=== PATIENT | female | born 1990 | race Two or more races ===

== ENCOUNTER → 2017-11-28 | Outpatient (REF) | payer OTHER, SELFPAY ==
[2017-11-28 22:35] LABS: CHLAMYDIA DNA AMPLIFICATION NEGATIVE (NEGATIVE); GC DNA AMPLIFICATION NEGATIVE (NEGATIVE)
== END ==
LOC: M SFHCLERA 13:05
DX: R30.0 Dysuria (principal)
CPT/HCPCS: 87086

== ENCOUNTER 2017-12-01 09:40 | Emergency (ER) | payer OTHER, SELFPAY ==
[2017-12-01 10:45] LABS: KETONE, URINE AUTO RFX NEGATIVE (NEGATIVE); LEUKOCYTE ESTERASE UR AUTO RFX NEGATIVE (NEGATIVE); NITRITE, URINE AUTO RFX NEGATIVE (NEGATIVE); RBC, URINE AUTO RFX 1 /HPF (0-3); SPECIFIC GRAVITY UR AUTO RFX 1.001 (1.002-1.035); SQUAM EPITHELIAL CELL UR AURFX 0 /HPF (0-6); WBC, URINE AUTO RFX 1 /HPF (0-3)
[2017-12-01] MEDS: KETOROLAC 60 MG/2 ML VIAL (J1885) IM ×2 (11:09)
== END 2017-12-01 11:41 | disposition home or self-care (01) ==
LOC: M ED 09:40
DX: M54.5 Low back pain (principal); Z79.899 Other long term (current) drug therapy; Z88.8 Allergy status to other drugs, medicaments and biological substances
CPT/HCPCS: J1885

== ENCOUNTER → 2018-03-15 | Outpatient (REF) | payer BC ==
[~2018-03-15] MED LIST: NAPR-885 PO; ROBA500T PO; TOPI100T9
== END ==
LOC: M SFHCLERA 18:10
PROVIDERS: ATTEND Nurse Practitioner Family
DX: N89.8 Other specified noninflammatory disorders of vagina (principal)

== ENCOUNTER → 2018-04-26 | Outpatient (CLI) | payer BC ==
[2018-04-26 12:46] LABS: BASO % 0.5 % (0.0-1.0); EOS # 0.3 10^3/uL (0.0-0.50); EOS % 5.4 % (0.0-3.0); HEMATOCRIT 40.1 % (36.0-47.0); HEMOGLOBIN 12.7 g/dl (12.0-15.5); LYMPH # 1.7 10^3/uL (1.5-6.5); LYMPH % 30.9 % (24.0-44.0); MEAN CORPUSCULAR HEMOGLOBIN 27.8 pg (27.0-33.0); MEAN CORPUSCULAR HGB CONC 31.7 g/dl (32.0-36.5); MEAN CORPUSCULAR VOLUME 87.7 fl (80.0-96.0); MONO # 0.5 10^3/uL (0.0-0.8); PLATELET COUNT, AUTOMATED 291 10^3/uL (150-450); RED BLOOD COUNT 4.57 10^6/uL (4.00-5.40); WHITE BLOOD COUNT 5.6 10^3/uL (4.0-10.0)
[2018-04-26 13:39] LABS: ALBUMIN 3.8 GM/DL (3.2-5.2); ALT/SGPT 16 U/L (12-78); BILIRUBIN,TOTAL 0.5 MG/DL (0.2-1.0); BLOOD UREA NITROGEN 11 MG/DL (7-18); CARBON DIOXIDE LEVEL 26 MEQ/L (21-32); CHLORIDE LEVEL 106 MEQ/L (98-107); CHOLESTEROL LEVEL 126 MG/DL (<200); CHOLESTEROL RISK RATIO 2.333 (<5); CREATININE FOR GFR 0.86 MG/DL (0.55-1.30); FREE T4 1.01 NG/DL (0.76-1.46); GLOMERULAR FILTRATION RATE > 60.0 (>60); GLUCOSE, FASTING 90 MG/DL (70-100); HDL CHOLESTEROL 54 MG/DL (>40); LDL CHOLESTEROL 65 MG/DL (<100); NON-HDL-C 72 MG/DL; POTASSIUM SERUM 4.6 MEQ/L (3.5-5.1); SODIUM LEVEL 140 MEQ/L (136-145); TOTAL PROTEIN 6.9 GM/DL (6.4-8.2); TRIGLYCERIDES LEVEL 34 MG/DL (<150)
== END ==
LOC: M WUC 11:05
PROVIDERS: ATTEND Physician Assistant
DX: Z13.29 Encounter for screening for other suspected endocrine disorder (principal)

== ENCOUNTER → 2018-07-27 | Outpatient (REF) | payer BC | LOC: M SFHCLERA 17:27 | PROVIDERS: ATTEND Physician Assistant | DX: R10.2 Pelvic and perineal pain (principal) ==

== ENCOUNTER → 2019-05-15 | Outpatient (REF) | payer BC ==
[2019-05-15 17:39] LABS: HEMATOCRIT 37.5 % (36.0-47.0); MEAN CORPUSCULAR HEMOGLOBIN 28.4 pg (27.0-33.0); MEAN CORPUSCULAR VOLUME 88.9 fl (80.0-96.0); PLATELET COUNT, AUTOMATED 287 10^3/uL (150-450); RED BLOOD COUNT 4.22 10^6/uL (4.00-5.40); WHITE BLOOD COUNT 10.5 10^3/uL (4.0-10.0)
[2019-05-15 20:19] LABS: CHLAMYDIA DNA AMPLIFICATION NEGATIVE (NEGATIVE); GC DNA AMPLIFICATION NEGATIVE (NEGATIVE)
[2019-05-16 08:54] LABS: HEPATITIS B SURFACE ANTIGEN NEGATIVE (NEGATIVE); HEPATITIS C VIRUS ABY INDEX 0.1 INDEX (<0.8); HIV 1&2 SCREEN CENTAUR NEGATIVE (NEGATIVE); RUBELLA IgG QUALITATIVE IMMUNE (IMMUNE)
== END ==
LOC: M PLALAB 15:47
PROVIDERS: ATTEND Advanced Practice Midwife
DX: Z34.01 Encounter for supervision of normal first pregnancy, first trimester (principal)

== ENCOUNTER → 2019-05-30 | Outpatient (REF) | payer BC | LOC: M LAB REF 17:02 | PROVIDERS: ATTEND Family Medicine | DX: N23 Unspecified renal colic (principal) ==

== ENCOUNTER → 2019-06-15 | Outpatient (CLI) | payer BC | LOC: M PLALAB 10:11 | PROVIDERS: ATTEND Advanced Practice Midwife | DX: Z36.89 Encounter for other specified antenatal screening (principal) ==

== ENCOUNTER → 2019-07-05 | Outpatient (CLI) | payer BC ==
--- NOTE | 2019-07-06 02:59 | REP ---
Clinical: Anatomical evaluation. Comparison: None . Findings: Examination demonstrates a single live intrauterine in breech presentation. motion is identified by technologist. Placenta is noted posterior and grade I without evidence for placenta previa or abruption. Amniotic fluid volume is normal. Cervix measures 3.2 cm in length and appears closed. No evidence for nuchal cord. Gestational age by current measurements 18 weeks 3 days with MARIANO 12/03/2019 . FHR equals 146 beats per minute. BPD 4.1 cm 18 weeks 2 days HC 15.3 cm 18 weeks 2 days AC 13.4 cm 18 weeks 6 days FL 2.8 cm 18 weeks 5 days HL 2.7 cm 18 weeks 4 days HC/AC ratio 1.14 Estimated weight 254 grams (58th percentile). Anatomical assessment demonstrates normal structures including cranium, choroid plexus, cavum, cerebellum/posterior fossa, lungs, four-chamber heart/ventricular outflow tracts, diaphragm, stomach, cord insertion/three-vessel cord, kidneys/bladder, spine, and extremities. Current examination demonstrates subjective prominence to the nasal septum and follow-up evaluation of the facial features may be warranted. Impression: 1. Single live intrauterine in breech presentation demonstrating appropriate interval growth. 2. Prominent appearance to the nasal septum may warrant followup evaluation of the facial features.
== END ==
LOC: M WHC 12:48
PROVIDERS: ATTEND Advanced Practice Midwife
DX: Z34.02 Encounter for supervision of normal first pregnancy, second trimester (principal)

== ENCOUNTER → 2019-09-04 | Outpatient (REF) | payer BC ==
[~2019-09-04] MED LIST changes: +ACET-683 PO; +IBUP80TA PO; +PRENTAB9 PO
[2019-09-04 13:53] LABS: HEMATOCRIT 38.8 % (36.0-47.0); HEMOGLOBIN 12.1 g/dl (12.0-15.5); MEAN CORPUSCULAR HEMOGLOBIN 27.7 pg (27.0-33.0); MEAN CORPUSCULAR HGB CONC 31.2 g/dl (32.0-36.5); MEAN CORPUSCULAR VOLUME 88.8 fl (80.0-96.0); PLATELET COUNT, AUTOMATED 271 10^3/uL (150-450); RED BLOOD COUNT 4.37 10^6/uL (4.00-5.40); WHITE BLOOD COUNT 13.5 10^3/uL (4.0-10.0)
== END ==
LOC: M PLALAB 10:22
PROVIDERS: ATTEND Obstetrics & Gynecology
DX: Z36.89 Encounter for other specified antenatal screening (principal); Z3A.00 Weeks of gestation of pregnancy not specified

== ENCOUNTER → 2019-10-30 | Emergency (ER) | payer BC | END | disposition home or self-care (01) | LOC: M ED 07:30 | DX: O26.893 Other specified pregnancy related conditions, third trimester (principal); M65.272 Calcific tendinitis, left ankle and foot; R07.82 Intercostal pain; Z3A.35 35 weeks gestation of pregnancy; Z88.8 Allergy status to other drugs, medicaments and biological substances ==

== ENCOUNTER → 2019-11-09 | Outpatient (REF) | payer BC | LOC: M SFHCWAGY 13:02 | PROVIDERS: ATTEND Advanced Practice Midwife | DX: Z34.03 Encounter for supervision of normal first pregnancy, third trimester (principal) ==

== ENCOUNTER 2019-12-09 07:14 | Inpatient (IN) | payer BC ==
[2019-12-09] VITALS (31 sets, daily range): BP systolic 99–134; BP diastolic 53–90
[~2019-12-09] VITALS: Ht 175.3 cm; Wt 120.4 kg
[~2019-12-09 07:14] MED LIST changes: -ACET-683 PO; -IBUP80TA PO; -PRENTAB9 PO
[2019-12-09] MEDS ORDERED: PRENTAB9 PO (07:41)
[2019-12-09 09:44] LABS: HEMATOCRIT 36.4 % (36.0-47.0); HEMOGLOBIN 11.1 g/dl (12.0-15.5); MEAN CORPUSCULAR HEMOGLOBIN 25.4 pg (27.0-33.0); MEAN CORPUSCULAR HGB CONC 30.5 g/dl (32.0-36.5); MEAN CORPUSCULAR VOLUME 83.3 fl (80.0-96.0); PLATELET COUNT, AUTOMATED 220 10^3/uL (150-450); RED BLOOD COUNT 4.37 10^6/uL (4.00-5.40); WHITE BLOOD COUNT 13.3 10^3/uL (4.0-10.0)
[2019-12-09] MEDS ORDERED: LACTATED RINGER'S 1000 ML IV STA (09:58)
[2019-12-09] MEDS ORDERED: miSOPROStol 50 MCG 1/2 TAB (S0191) As Ordered ONE (10:25)
[2019-12-09] MEDS ORDERED: miSOPROStol 25 MCG 1/4 TAB (S0191) PV ONE (10:30)
[2019-12-09] MEDS ORDERED: miSOPROStol 25 MCG 1/4 TAB (S0191) PO ONE (10:30)
[2019-12-09] MEDS ORDERED: miSOPROStol 50 MCG 1/2 TAB (S0191) PV ONE (10:30)
--- NOTE | 2019-12-09 10:52 | HPEPDOC ---
Obstetrical History & Physical General Date of Admission Dec 09, 2019 at 07:14 History of Present Illness Adrián is a 29yo with SIUP at 40w4d by lmp c/w early u/s presenting for scheduled elective IOL. She feels well, no complaints. No regular ctx, no LOF, no vaginal bleeding. Good movement. Chief Complaint: Induction of labor Information Provided By: Patient Care Care: Good Care Dating Final EDC: Dec 05, 2019 Final EDC by: LMP, 1st trimester (US) Antepartum Course Diagnos(e)s Obesity Height (inches): 69 Admission Weight (lbs.): 265 Past Medical History Past Obstetrical History : Past Obstetrical History: Primgrav[employer] History: No pertinent history Past Medical History Medical History Obesity, migraines Surgical History: Gallbladder Family History Significant Family History: Hypertension Social History Family situation: Spouse/partner home Psychosocial History: No pertinent psych hx * Smoker: non-smoker Alcohol: Denies Drugs: denies Allergies Coded Allergies: celecoxib (Verified Allergy, Unknown, 12/09/19) Medications Scheduled No.137/Iron/Folic Acd ( Vitamin Tablet) 1 Each Tablet, 1 TAB PO DAILY Physical Examination Physical Examination GENERAL: Alert and oriented times three. ABDOMEN: Gravid and non-tender to touch. FETUS: Is vertex (VTX) by sterile vaginal examination (SVE) EXTREMITIES: trace edema BLE Vital Signs/I&O Vital Signs Date Time Temp Pulse Resp B/P (MAP) Pulse Ox O2 Delivery O2 Flow Rate FiO2 12/09/19 07:50 96.5 94 18 119/59 (79) Laboratory Data [facility] Laboratory Tests 2 12/09/19 07:26: Serology Scanned Report Hepatitis B Testing 12/09/19 09:21: Nucleated Red Blood Cells % (auto) 0.0 CBC/BMP Laboratory Tests 12/09/19 09:21 Pertinent Laboratoy Data Blood Type: O+ RBC Antibody Screen: Negative HIV: Negative Hepatitis B: Negative Hepatitis C: Negative Rapid Plasma Reagin: Nonreactive Rubella: Immune Chlamydia/Gonorrhea: Negative Group B Streptococcus: Negative Glucose Tolerance Test: 100 Anatomy Ultrasound Ultrasound Date: July 05, 2019 Placenta Location: Posterior Normal Anatomy: Yes (prominent appearance of nasal septum) Placenta Previa: No Steroid Therapy Steroid Therapy: No Vaginal Examination Dilation: 1cm Effacement: 70% Station: -2 Cervical Consistency: Soft Cervical Position: Middle Presentation: Cephalic presentation Assessment Heart Rate (FHR): 140 Variability: Moderate Accelerations: Positive Decelerations: None Tocometer Contractions: Yes Frequency: irregular Assessment/Plan Assessment Adrián is a 29yo with SIUP at 40w4d by lmp c/w early u/s presenting for scheduled elective IOL. Vitals wnl, benign exam. Cat I FHRT, occasional ctx. SCE /-2. Cephalic. GBS negative. PMhx/ course significant for obesity, normal glucose testing. Plan Admit and orient. Assistant Gm Of Content & Delivery and consent. Diet: regular then clear liquids Group B Streptococcus (GBS) negative Labs and intravenous (IV) per unit protocol. Counseled on isaac bulb, cytotec, Pitocin and induction of labor (IOL). Isaac cervical bulb placed with 40cc NS and 50mcg PV cytotec. Lactated Ringers (LR): Bolus 800 mL, then at 125 mL/hr. Anticipate normal spontaneous delivery () IV Stadol 2mg q4hr prn pain in latent labor MD Jarett Pendleton Katrina D MD Dec 09, 2019 10:52
[2019-12-09] MEDS ORDERED: OXYTOCIN DRIP 30 UNITS in IV 1 EA IV SCH (14:30)
[2019-12-09] MEDS: LR 1,000 ML IV SCH ×2 (14:54→19:11)
--- NOTE | 2019-12-09 19:01 | IPNPDOC ---
Text Note Date of Service The patient was seen on 12/09/19. NOTE Intrapartum Note Adrián is doing well, breathing through ctx. Vitals wnl, afebrile Cat I FHRT with +accels, -decels, mod alexandre Ctx q2-3min SCE: /-2, bulging bag Discussed AROM with patient, but she would like epidural prior Will plan for epidural then AROM Continue to titrate pitocin per protocol Will continue to closely observe Safe to proceed Annabelle Denson MD VSDeshawn, I+O VSDeshawn I+O Laboratory Tests 12/09/19 09:21 Vital Signs Date Time Temp Pulse Resp B/P (MAP) Pulse Ox O2 Delivery O2 Flow Rate FiO2 12/09/19 07:50 96.5 94 18 119/59 (79) Annabelle Denson MD Dec 09, 2019 19:01
[2019-12-09] MEDS ORDERED: FENTANYL 2MCG/ML ROPIVACAINE 0.2% IN 0.9% NACL 100ML IVBAG As Ordered ONE (19:02)
[2019-12-09] MEDS: FENTANYL/ROPIVACAINE/NACL BAG 100 ML EPIDURAL SCH (20:44)
[2019-12-09] MEDS ORDERED: ePHEDrine SULFATE 25 MG/5 ML(5MG/ML) SYRINGE IV PRN (22:15)
[2019-12-09] MEDS ORDERED: EPIDURAL COMMENT XX SCH (22:15)
[2019-12-09] MEDS ORDERED: ONDANSETRON 4MG/2ML VIAL IV PRN (22:15)
[2019-12-09] MEDS ORDERED: LACTATED RINGER'S 1000 ML IV PRN (22:15)
[2019-12-09] MEDS ORDERED: NALOXONE INJ 0.4MG/1ML VIAL (J2310 PER 1MG) IV PRN (22:15)
[2019-12-09] MEDS ORDERED: REFRIGERATOR IV KEYS XX PRN (22:15)
[2019-12-09] MEDS ORDERED: EPIDURAL/PCA KEYS XX PRN (22:15)
[2019-12-09] MEDS ORDERED: diphenhydrAMINE 50MG/ML VIAL (J1200) IV PRN (22:15)
--- NOTE | 2019-12-09 22:56 | IPNPDOC ---
Text Note Date of Service The patient was seen on 12/09/19. NOTE Intrapartum Note Adrián is doing well, received epidural and she is comfortable. Pitocin is at 2mu. Vitals wnl, afebrile Cat I FHRT with +accels, -decels, mod alexandre Ctx q2-3min SCE: 80/-1, AROM performed with clear fluid noted Will continue to closely observe Titrate up on pitocin per protocol Re-check in 2-4hr or earlier as indicated Safe to proceed Annabelle Denson MD VS,Deshawn, I+O VS, Deshawn I+O Laboratory Tests 12/09/19 09:21 Vital Signs Date Time Temp Pulse Resp B/P (MAP) Pulse Ox O2 Delivery O2 Flow Rate FiO2 12/09/19 19:08 69 125/59 (81) 12/09/19 07:50 96.5 18 Annabelle Denson MD Dec 09, 2019 22:56
[2019-12-10] VITALS (15 sets, daily range): BP systolic 107–136; BP diastolic 57–80
[2019-12-10] MEDS: LR 1,000 ML IV SCH (02:33)
--- NOTE | 2019-12-10 04:15 | IPNPDOC ---
Text Note Date of Service The patient was seen on 12/10/19. NOTE Intrapartum Note Pt doing well, comfortable with epidural and feeling rectal pressure Vitals wnl, afebrile Cat I FHRT ctx q2-3min SCE: anterior lip/C/+2, anterior lip resolved with practice pushes and now C/C/+2 Will continue pushing Anticipate soon Safe to proceed Annabelle Denson MD VS,Deshawn, I+O VSDeshawn I+O Laboratory Tests 12/09/19 09:21 Vital Signs Date Time Temp Pulse Resp B/P (MAP) Pulse Ox O2 Delivery O2 Flow Rate FiO2 12/09/19 23:40 98.4 69 16 106/58 (74) 12/09/19 20:53 99 I&O- Last 24 Hours up to 6 AM 12/10/19 06:00 Intake Total 650 ml Output Total 1750 ml Balance -1100 ml Annabelle Denson MD Dec 10, 2019 04:15
[2019-12-10] MEDS ORDERED: OXYTOCIN DRIP 30 UNITS in IV 1 EA IV SCH (05:10)
[2019-12-10] MEDS ORDERED: ACETAMINOPHEN TAB 650MG DOSE (2X325MG) PO PRN (05:15)
[2019-12-10] MEDS ORDERED: DOCUSATE SODIUM 100 MG CAP PO PRN (05:15)
[2019-12-10] MEDS ORDERED: RHOGAM 300 MCG (1500 IU) INJ (J2790) IM SCH (05:15)
[2019-12-10] MEDS ORDERED: MEASLES,MUMPS,RUBELLA VACCINE INJ (MMR-II) (90707) SC SCH (05:15)
[2019-12-10] MEDS ORDERED: DIBUCAINE 1% OINTMENT 30GM TOP PRN (05:15)
[2019-12-10] MEDS ORDERED: ACETAMINOPHEN 500 MG TAB PO PRN (05:15)
--- NOTE | 2019-12-10 05:19 | DNPDOC ---
[facility] Delivery Note Delivery Note DATE OF DELIVERY: 12/10/19 PREDELIVERY DIAGNOSIS: 40w5d IOL for post-dates POST DELIVERY DIAGNOSIS: Delivered. PROCEDURE: Spontaneous vaginal delivery GASKET FORMER: Dr. Annabelle Denson MD ANESTHESIA: epidural ESTIMATED BLOOD LOSS: 300 mL. FINDINGS: 8 pound 3 ounce (3720g) female infant, Score 8/9 DELIVERY SUMMARY: Adrián is a 29yo [id number] s/p uncomplicated at 40w5d after undergoing IOL for post-dates, delivering at 0445 on 12/10/19. She had induction started with isaac bulb and cytotec and then received pitocin. She received an epidural and then had AROM, clear, and over time progressed to C/C/+2 at which point she began pushing. With good maternal effort, infant's head delivered OA, restituted MECHE. The left anterior shoulder delivered and the corpus immediately followed. Terminal meconium noted. The was placed on the maternal abdomen, spontaneous cry noted. Nose and mouth suctioned with bulb suction, apgars 8/9. After one minute, cord was clamped x2 and cut by the FOB. With traction on the cord and uterine massage, placenta delivered spontaneously and intact with centrally inserted cord 3 vessel cord. There was scant trailing membrane teased out with ring forceps. IV pitocin given per protocol. Sweep of lower uterine segment revealed nothing retained. Bimanual uterine massage performed and fundus then firm at u-2cm. Inspection of vagina and perineum revealed a small periurethral abrasion and very small 1mll that were both repaired with 3-0 vicryl with simple figure of 8's with excellent reapproximation and complete hemostasis. Both mom and baby were doing well when I left the room. All counts of instruments and sponges are correct. MD Jarett Pendleton Katrina D MD Dec 10, 2019 05:19
[2019-12-10] MEDS: PRENATAL VITAMINS CHEWABLE TABLET PO SCH (10:20)
[2019-12-10] MEDS: FENTANYL/ROPIVACAINE/NACL BAG 100 ML EPIDURAL SCH (11:45)
[2019-12-10] MEDS ORDERED: IBUPROFEN 800 MG TAB PO PRN (15:15)
[2019-12-10] MEDS ORDERED: IBUPROFEN 600MG TAB PO PRN (15:15)
[2019-12-11] MEDS: FENTANYL/ROPIVACAINE/NACL BAG 100 ML EPIDURAL SCH (00:15)
[2019-12-11 05:47] VITALS: BP 123/58
[2019-12-11] MEDS: PRENATAL VITAMINS CHEWABLE TABLET PO SCH (08:09)
[2019-12-11 18:00] VITALS: BP 130/65
[2019-12-11] MEDS ORDERED: IBUP80TA PO (18:58)
[2019-12-11] MEDS ORDERED: ACET-683 PO (18:58)
--- NOTE | 2020-01-01 21:22 | DS.PDOC ---
Discharge Summary General Date of Admission Dec 09, 2019 at 07:14 Date of Discharge December 11, 2019 Attending Physician: MILANA SOTO MD Discharge Summary PROCEDURES PERFORMED DURING STAY: spontaneous vaginal delivery. ADMITTING DIAGNOSES: 1. 40 5/7 weeks gestation, induction. DISCHARGE DIAGNOSES: 1. delivered. COMPLICATIONS/CHIEF COMPLAINT: Induction. HISTORY OF PRESENT ILLNESS: 29 yo G1 at 40 5/7 weeks gestation presents for labor induction. no bleeding, irregular contractions.. HOSPITAL COURSE: Pt admitted on 12/09/19. She had induction initiated with Misoprostol./ She eventually progressed to a vaginal delivery of a viable female infant. Her post course was unremarkable. She had adequate return of bladder and bowel function. She was stable for discharge on post day#2. DISCHARGE MEDICATIONS: Please see below. ALLERGIES: Please see below. PHYSICAL EXAMINATION ON DISCHARGE: VITAL SIGNS: Please see below. GENERAL:NAD HEENT: WNL CARDIOVASCULAR EXAMINATION: RRR RESPIRATORY EXAMINATION: CTA ABDOMINAL EXAMINATION: NT, FF EXTREMITIES: NT LABORATORY DATA: Please see below. PROGNOSIS: good ACTIVITY: As tolerated. DIET: DISCHARGE PLAN: home DISPOSITION: Home, Self-Care. DISCHARGE INSTRUCTIONS: 1. home today 2. instructions reveiwed 3. fu 6 weeks DISCHARGE CONDITION: Stable. TIME SPENT ON DISCHARGE: Greater than 10 minutes. Discharge Medications Scheduled No.137/Iron/Folic Acd ( Vitamin Tablet) 1 Each Tablet, 1 TAB PO DAILY, (Reported) Scheduled PRN Acetaminophen (Acetaminophen) 500 Mg Tablet, 1,000 MG PO Q6HP PRN for PAIN LEVEL 6-10 Ibuprofen (Ibuprofen) 800 Mg Tablet, 800 MG PO Q8HP PRN for MODERATE PAIN (PS 5- 7) Allergies Coded Allergies: celecoxib (Verified Allergy, Unknown, 12/09/19) MILANA SOTO MD Jan 01, 2020 21:22
== END 2019-12-11 19:25 | disposition home or self-care (01) | DRG 560 ==
LOC: M LDI 07:14 → M OBS 12-10 07:47
PROVIDERS: ADMIT Obstetrics & Gynecology; ATTEND Obstetrics & Gynecology
PROC: 3E0P7GC Introduction of Other Therapeutic Substance into Female Reproductive, Via Natural or Artificial Opening (ICD-10-PCS; 2019-12-09)
PROC: 10907ZC Drainage of Amniotic Fluid, Therapeutic from Products of Conception, Via Natural or Artificial Opening (ICD-10-PCS; 2019-12-09)
PROC: 10E0XZZ Delivery of Products of Conception, External Approach (ICD-10-PCS; principal; 2019-12-10)
PROC: 0HQ9XZZ Repair Perineum Skin, External Approach (ICD-10-PCS; 2019-12-10)
DX: O48.0 Post-term pregnancy (principal); E66.9 Obesity, unspecified; Z3A.40 40 weeks gestation of pregnancy; O99.214 Obesity complicating childbirth; O70.0 First degree perineal laceration during delivery; O73.1 Retained portions of placenta and membranes, without hemorrhage; Z37.0 Single live birth

== ENCOUNTER → 2020-02-05 | Outpatient (REF) | payer SELFPAY ==
[~2020-02-05] MED LIST changes: +ACET-683 PO; +IBUP80TA PO; +PRENTAB9 PO
== END ==
LOC: EDSTATUS 11:40 → M LABSMTC 11:44
PROVIDERS: ATTEND Pediatrics
DX: Z11.59 Encounter for screening for other viral diseases (principal)

== ENCOUNTER → 2020-03-05 | Outpatient (CLI) | payer SELFPAY | LOC: M LABSMTC 13:09 | PROVIDERS: ATTEND Pediatrics | DX: Z20.822 Contact with and (suspected) exposure to COVID-19 (principal) ==

== ENCOUNTER → 2020-06-15 | Outpatient (CLI) | payer BC ==
[2020-06-15 09:49] LABS: FREE T4 0.88 NG/DL (0.76-1.46); THYROID STIMULATING HORMONE 3.44 uIU/ML (0.358-3.740)
== END ==
LOC: M LAB 08:22
PROVIDERS: ATTEND Family Medicine
DX: Z13.29 Encounter for screening for other suspected endocrine disorder (principal)

== ENCOUNTER → 2021-06-17 | Outpatient (CLI) | payer BC ==
[2021-06-17 13:40] LABS: BASO % 0.4 % (0.0-1.0); EOS # 0.1 10^3/uL (0.0-0.5); EOS % 1.6 % (0.0-3.0); HEMATOCRIT 41.6 % (36.0-47.0); LYMPH # 2.2 10^3/uL (1.5-5.0); LYMPH % 33.4 % (24.0-44.0); MEAN CORPUSCULAR HEMOGLOBIN 26.4 pg (27.0-33.0); MEAN CORPUSCULAR HGB CONC 31.3 g/dl (32.0-36.5); MEAN CORPUSCULAR VOLUME 84.4 fl (80.0-96.0); MONO # 0.4 10^3/uL (0.0-0.8); MONO % 6.4 % (2.0-8.0); NEUTROPHILS # 3.9 10^3/uL (1.5-8.5); NEUTROPHILS % 57.9 % (36.0-66.0); PLATELET COUNT, AUTOMATED 380 10^3/uL (150-450); RED BLOOD COUNT 4.93 10^6/uL (4.00-5.40); WHITE BLOOD COUNT 6.7 10^3/uL (4.0-10.0)
[2021-06-17 14:20] LABS: ALBUMIN 4.4 GM/DL (3.2-5.2); ALT/SGPT 25 U/L (12-78); BILIRUBIN,TOTAL 0.5 MG/DL (0.2-1.0); BLOOD UREA NITROGEN 17 MG/DL (7-18); CALCIUM LEVEL 10.3 MG/DL (8.5-10.1); CARBON DIOXIDE LEVEL 26 MEQ/L (21-32); CHLORIDE LEVEL 108 MEQ/L (98-107); CHOLESTEROL LEVEL 164 MG/DL (<200); CREATININE FOR GFR 0.92 MG/DL (0.55-1.30); FREE T4 0.94 NG/DL (0.76-1.46); GLOMERULAR FILTRATION RATE > 60.0 (>60); GLUCOSE, FASTING 82 MG/DL (70-100); HDL CHOLESTEROL 50 MG/DL (>40); LDL CHOLESTEROL 101 MG/DL (<100); NON-HDL-C 114 MG/DL; POTASSIUM SERUM 5.1 MEQ/L (3.5-5.1); SODIUM LEVEL 140 MEQ/L (136-145); TOTAL PROTEIN 7.7 GM/DL (6.4-8.2); TRIGLYCERIDES LEVEL 66 MG/DL (<150)
[2021-06-17 15:02] LABS: HEMOGLOBIN A1c 5.3 %
[2021-06-17 16:13] LABS: PTH INTACT 37.9 PG/ML (18.5-88.0)
== END ==
LOC: M PLALAB 10:06
PROVIDERS: ATTEND Family Medicine
DX: Z13.29 Encounter for screening for other suspected endocrine disorder (principal)

== ENCOUNTER → 2022-08-14 | Outpatient (CLI) | payer BC ==
[2022-08-14 08:57] LABS: BASO % 0.4 % (0.0-1.0); EOS # 0.2 10^3/uL (0.0-0.5); EOS % 2.2 % (0.0-3.0); HEMATOCRIT 42.6 % (36.0-47.0); HEMOGLOBIN 13.4 g/dl (12.0-15.5); LYMPH # 2.1 10^3/uL (1.5-5.0); LYMPH % 24.3 % (24.0-44.0); MEAN CORPUSCULAR HEMOGLOBIN 26.7 pg (27.0-33.0); MEAN CORPUSCULAR HGB CONC 31.5 g/dl (32.0-36.5); MEAN CORPUSCULAR VOLUME 84.9 fl (80.0-96.0); MONO # 0.6 10^3/uL (0.0-0.8); MONO % 6.9 % (2.0-8.0); NEUTROPHILS # 5.6 10^3/uL (1.5-8.5); NEUTROPHILS % 65.7 % (36.0-66.0); PLATELET COUNT, AUTOMATED 352 10^3/uL (150-450); RED BLOOD COUNT 5.02 10^6/uL (4.00-5.40); WHITE BLOOD COUNT 8.6 10^3/uL (4.0-10.0)
[2022-08-14 09:18] LABS: ALKALINE PHOSPHATASE 110 U/L (46-116); ALT/SGPT 21 U/L (7.0-40); AST/SGOT 12 U/L (<34); BILIRUBIN,TOTAL 0.4 MG/DL (0.3-1.2); BLOOD UREA NITROGEN 14 MG/DL (9-23); CALCIUM LEVEL 9.1 MG/DL (8.5-10.1); CARBON DIOXIDE LEVEL 26 MMOL/L (20-31); CHLORIDE LEVEL 104 MMOL/L (98-107); CHOLESTEROL LEVEL 139 MG/DL (<200); CHOLESTEROL RISK RATIO 2.97 (<5); CREATININE FOR GFR 0.95 MG/DL (0.55-1.30); GLOMERULAR FILTRATION RATE > 60.0 (>60); GLUCOSE, FASTING 90 MG/DL (60-100); HDL CHOLESTEROL 46.8 MG/DL (>40); LDL CHOLESTEROL 80.8 MG/DL (<100); NON-HDL-C 92.2 MG/DL; POTASSIUM SERUM 4.5 MMOL/L (3.5-5.1); SODIUM LEVEL 137 MMOL/L (136-145); TRIGLYCERIDES LEVEL 57 MG/DL (<150)
[2022-08-14 09:20] LABS: FREE T4 0.95 NG/DL (0.89-1.76); THYROID STIMULATING HORMONE 2.428 uIU/ML (0.55-4.78)
== END ==
LOC: M LAB 08:22
PROVIDERS: ATTEND Family Medicine
DX: Z13.220 Encounter for screening for lipoid disorders (principal)